=== PATIENT | female | born 1970 | race Caucasian/White ===

== ENCOUNTER 2023-03-25 18:56 | Emergency (ER) | payer OTHER, SELFPAY ==
--- NOTE | ~2023-03-25 | XR_ITS ---
EXAM: XR foot RT min 3V DATE: 03/25/2023 19:29 HISTORY: dropped soap dispenser onto rt 3rd toe area . COMPARISON: None available. FINDINGS: Normal mineralization. No fracture or dislocation. No lytic or blastic lesion. Scattered m ild degenerative changes. Achilles enthesopathy. No erosion or periosteal change. Soft tissues within normal limits. Prominent os navicularis which can be a source of chronic medial foot pain in some pa tients. IMPRESSION: No acute osseous finding in the right foot. Reviewed, dictated and finalized at location [facility]
[2023-03-25 19:14] VITALS: BP 131/84; PULSE 78; RESP 16; TEMP 37.1; O2SAT 99
[2023-03-25 19:24] VITALS: BP 131/84; PULSE 78; RESP 16; TEMP 37.1; O2SAT 99
[2023-03-25] MEDS: KETOROLAC (*BKC) 60 MG/2 ML VIAL IM (19:44)
--- NOTE | 2023-03-25 19:44 | ED.GENADULT ---
HPI - General Adult General Chief complaint: Extremity Injury, Lower Stated complaint: toe on right foot injured Source: patient Mode of arrival: ambulatory Limitations: no limitations History of Present Illness HPI narrative: Patient presents for evaluation pain hand bruising to the 3rd digit of the right foot. She indicates that decorative soap bottle fell and landed on her right foot this morning. She now reports 9/10 pain the affected digit. No descriptive quality of the pain. No paresthesias. She has underlying fibromyalgia. No loss of range of motion. She indicates Toradol has helped her pain in the past for other issues. Related Data Allergies Allergy/AdvReac Type Severity Reaction Status Date / Time naproxen [From Treximet] Allergy Stopped Verified 03/25/23 19:24 Breathing sumatriptan [From Treximet] Allergy Stopped Verified 03/25/23 19:24 Breathing Review of Systems Review of Systems: CONSTITUTIONAL: Denies fever, chills, or sweats. EYES: Denies visual changes, redness, or discharge. ENT: Denies rhinorrhea, congestion, sore throat, or otalgia. CARDIOVASCULAR: Denies chest pain, palpitations, or edema. RESPIRATORY: Denies cough or dyspnea. GASTROINTESTINAL: Denies abdominal pain, nausea, vomiting, or diarrhea. GENITOURINARY: Denies dysuria or hematuria. SKIN: Reports bruising to the 3rd digit of the right foot. Denies rash or itching. MUSCULOSKELETAL: Reports pain in the 3rd digit of the right foot. NEUROLOGIC: Denies headache, numbness, dizziness, or weakness. PSYCHIATRIC: Denies anxiety or depression. [facility] Past Medical History Medical History Fibromyalgia Surgical History Surgical History History of ankle surgery Family History Family History (Updated 03/25/23 @ 19:47 by FLAKITO Torres, ) Mother Family history non-contributory Social History Social History (Updated 03/25/23 @ 19:47 by FLAKITO Torres, ) Substance use: never Living arrangements: with family Gender identity (if verbalized by the patient): Female Sexual Orientation (if Verbalized by the Patient): Straight or Heterosexual Spiritual care concerns: No Exam Narrative: GENERAL: Well-appearing, well-nourished, and in no acute distress. HEAD: Normocephalic, atraumatic. EYES: PERRLA and EOMI. ENT: Nares clear, no rhinorrhea or epistaxis. Mucous membranes moist. Oropharynx without tonsillar hypertrophy exudate or other lesions. Bilateral TMs pearly gipson nonbulging NECK: Supple. No adenopathy or masses. No carotid bruits or JVD CHEST: Clear to auscultation. No respiratory distress. No wheezes rales or rhonchi HEART: Regular rate and rhythm. No murmur heard. Normal peripheral pulses. ABDOMEN: Soft, nontender, nondistended, normal active bowel sounds. EXTREMITIES: Normal range of motion. Trace swelling noted to 3rd digit of right foot. There is tenderness in distal phalanx of 3rd digit of right foot. SKIN: ecchymosis noted to the distal phalanx of the 3rd digit of the right foot. NEURO: No focal deficits. Alert and oriented x3. PSYCH: Normal mood and affect. Course Course Emergency Course: this is a 52-year-old female who presented for evaluation of pain in and bruising to the 3rd digit of the right foot. X-ray negative for fracture. Given Toradol here. Jaya-taped 3rd digit to adjacent digit. She has a flat soled shoe at home. Will discharge with Toradol as she has tolerated well in the past. Follow-up with primary provider. Go to the ER for intractable pain or worsening symptoms. Patient in agreement plan of care. Level of Care: Express Care Visit Vital Signs Vital signs: Vital Signs Temperature 37.1 C 03/25/23 19:14 Pulse Rate 78 03/25/23 19:14 Respiratory Rate 16 03/25/23 19:14 Blood Pressure 131/84 03/25/23 19:14 Pulse Oximetry
== END 2023-03-25 20:03 | disposition home or self-care (01) ==
PROVIDERS: Emergency Provider Nurse Practitioner
DX: S90.121A Contusion of right lesser toe(s) without damage to nail, initial encounter (principal); W20.8XXA Other cause of strike by thrown, projected or falling object, initial encounter; M79.7 Fibromyalgia
CPT/HCPCS: 73630; 96372; 99203; G0463; J1885